=== PATIENT | male | born 1940 | race Caucasian/White ===

== ENCOUNTER 2024-06-26 15:04 | Emergency (ER) | payer MEDICARE ==
[~2024-06-26] VITALS: Ht 190.5 cm; Wt 94.3 kg
[2024-06-26] MEDS ORDERED: growth hormone (15:20)
[2024-06-26] MEDS ORDERED: ROSU5TAB13 PO (15:20)
[2024-06-26] MEDS ORDERED: METF-886 PO (15:20)
[2024-06-26] MEDS ORDERED: LIDOCAINE 1%-EPI 1:100,000 20 ML VIAL ONE (15:33)
[2024-06-26] MEDS: LIDOCAINE 1%-EPI 1:100,000 20 ML VIAL IJ ONE (15:49)
[2024-06-26] MEDS ORDERED: TDAP DIPH,PERTUSS,TET VAC/PF 0.5 ML DISP.SYRIN IM ONE (15:55)
[2024-06-26] MEDS: TDAP DIPH,PERTUSS,TET VAC/PF 0.5 ML DISP.SYRIN IM ONE (15:59)
[2024-06-26] MEDS ORDERED: NEOMY/BACITRA/POLYMYXIN B OINT UD PACKET TP ONE (16:28)
[2024-06-26] MEDS: NEOMY/BACITRA/POLYMYXIN B OINT UD PACKET TP ONE (16:29)
[2024-06-26 16:39] VITALS: BP 126/80; O2SAT 97
== END 2024-06-26 16:39 | disposition home or self-care (01) ==
LOC: ER 15:06
DX: S01.81XA Laceration without foreign body of other part of head, initial encounter (principal); S80.211A Abrasion, right knee, initial encounter; E11.9 Type 2 diabetes mellitus without complications; Z79.84 Long term (current) use of oral hypoglycemic drugs; Z79.899 Other long term (current) drug therapy; W01.0XXA Fall on same level from slipping, tripping and stumbling without subsequent striking against object, initial encounter; Y93.89 Activity, other specified; Y92.89 Other specified places as the place of occurrence of the external cause; Y99.8 Other external cause status
CPT/HCPCS: 12011; 90471; 90715; 99283; J3490; A4606; A4663

== ENCOUNTER 2024-07-06 10:32 | Emergency (ER) | payer MEDICARE ==
[~2024-07-06] VITALS: Ht 190.5 cm; Wt 94.3 kg
[~2024-07-06 10:32] MED LIST: METF-886 PO; ROSU5TAB13 PO; growth hormone
[2024-07-06 10:38] VITALS: O2SAT 95
== END 2024-07-06 11:43 | disposition home or self-care (01) ==
LOC: ER 10:39
DX: S01.81XD Laceration without foreign body of other part of head, subsequent encounter (principal); S80.01XA Contusion of right knee, initial encounter; E11.9 Type 2 diabetes mellitus without complications; Z79.84 Long term (current) use of oral hypoglycemic drugs; Z79.899 Other long term (current) drug therapy; X58.XXXA Exposure to other specified factors, initial encounter; Y93.89 Activity, other specified; Y92.89 Other specified places as the place of occurrence of the external cause; Y99.8 Other external cause status
CPT/HCPCS: A4606